=== PATIENT | female | born 1945 | race Caucasian/White ===

== ENCOUNTER → 2018-09-21 12:18 | Outpatient (CLI) | payer MEDICARE, OTHER, SELFPAY ==
--- NOTE | 2018-09-21 12:22 | DI.MG.S_ITS ---
BILATERAL DIGITAL SCREENING MAMMOGRAM 3D/2D WITH CAD: 09/21/2018 CLINICAL: Routine screening. Comparison is made to exams dated: 06/14/2016 mammogram, 11/19/2011 mammogram, 10/28/2010 mammogram, 10/21/2009 mammogram, and 06/28/2006 mammogram - [facility]. There are scattered fibroglandular elements in both breasts. Current study was also evaluated with a Computer Aided Detection (CAD) system. No significant masses, calcifications, or other findings are seen in either breast. There has been no significant interval change. IMPRESSION: NEGATIVE There is no mammographic evidence of malignancy. A 1 year screening mammogram is recommended. This exam was interpreted at Station ID: [id number]. NOTE: For mammograms, a report in lay terms will be sent to the patient. Approximately 15% of breast malignancies will not be visualized mammographically. In the management of a palpable breast mass, a negative mammogram must not discourage biopsy of a clinically suspicious lesion. Electronically Signed By: Balaji manriquez/elma:09/21/2018 18:36:39 letter sent: Normal Exam ACR BI-RADS Category 1: Negative [id number]
== END ==
PROVIDERS: PCP Family Medicine; Visit Provider Family Medicine
DX: Z12.31 Encounter for screening mammogram for malignant neoplasm of breast (principal); M85.852 Other specified disorders of bone density and structure, left thigh; Z78.0 Asymptomatic menopausal state; Z87.891 Personal history of nicotine dependence
CPT/HCPCS: 77063; 77067; 77080

== ENCOUNTER → 2018-09-27 10:21 | Outpatient (CLI) | payer MEDICARE, OTHER, SELFPAY ==
[2018-09-27 12:05] LABS: Add Manual Diff / Slide Review NO; Basophils Absolute Auto 100 /uL (0-100); Eosinophils Absolute Auto 100 /uL (0-450); Eosinophils Percent Auto 1.5 % (2-4); Hematocrit 43.4 % (36-46); Hemoglobin 14.3 g/dL (12.0-16.0); Lymphocytes Absolute Auto 2200 /uL (1100-4500); Lymphocytes Percent Auto 24.5 % (25-40); Mean Corpuscular Hemoglobin 29.7 PG (26-34); Mean Corpuscular Volume 89.9 fL (80-100); Monocytes Absolute Auto 400 /uL (0-900); Monocytes Percent Auto 4.6 % (3-14); Neutrophils Absolute Auto 6200 /uL (1500-7000); Neutrophils Percent Auto 68.4 % (50-75); Platelet Count 307 X10^3/uL (150-400); Red Blood Cell Count 4.83 X10^6/uL (4.0-5.2); Red Cell Distribution Width 12.8 % (11.6-14.8)
[2018-09-27 12:35] LABS: Alanine Aminotransferase 35 IU/L (9-52); Albumin 4.5 g/dL (3.5-5.0); Albumin Globulin Ratio 1.6 (1.0-2.8); Alkaline Phosphatase 71 U/L (38-126); Aspartate Aminotransferase 32 IU/L (14-36); BUN Creatinine Ratio 11.4 (6-22); Bilirubin Total 0.4 mg/dL (0.2-1.3); Blood Urea Nitrogen 8 mg/dL (7-17); Calcium 9.2 mg/dL (8.4-10.2); Carbon Dioxide 27 mmol/L (22-32); Chloride 101 mmol/L (98-107); Cholesterol 173 mg/dL (140-199); Estimated Glomerular Filt Rate > 60.0 mL/min (>60); Globulin 2.9 g/dL (1.7-4.1); Glucose 87 mg/dL (80-110); HDL Cholesterol 52 mg/dL (40-60); HEMOLYSIS < 15 (0-50); LDL Cholesterol Calculated 98 mg/dL (<100); Potassium 3.9 mmol/L (3.4-5.1); Sodium 139 mmol/L (137-145); Total Protein 7.4 g/dL (6.3-8.2); Triglycerides 114 mg/dL (35-150)
[2018-09-27 13:05] LABS: Thyroid Stimulating Hormone 1.27 uIU/mL (0.47-4.68)
== END ==
PROVIDERS: PCP Family Medicine; Visit Provider Family Medicine
DX: Z13.220 Encounter for screening for lipoid disorders (principal); Z13.29 Encounter for screening for other suspected endocrine disorder; Z13.6 Encounter for screening for cardiovascular disorders; M85.80 Other specified disorders of bone density and structure, unspecified site
CPT/HCPCS: 36415; 80053; 80061; 82306; 84443; 85025

== ENCOUNTER 2020-05-20 21:13 | Emergency (ER) | payer MEDICARE, OTHER, SELFPAY ==
[2020-05-20 21:20] VITALS: BP 178/87; PULSE 102; RESP 20; TEMP 36.4; O2SAT 99
--- NOTE | 2020-05-20 21:27 | DI.CT.S_ITS ---
PROCEDURE: CT HEAD/BRAIN WO CON INDICATIONS: fall headache TECHNIQUE: Noncontrast 4.5 mm thick angled axial sections acquired from the foramen magnum to the vertex, with coronal and sagittal reformats. For radiation dose reduction, the following was used: automated exposure control, adjustment of mA and/or kV according to patient size. COMPARISON: None. FINDINGS: Image quality: Excellent. CSF spaces: Basal cisterns are patent. No extra-axial fluid collections. There is mild cerebral volume loss with prominence of the ventricles and sulci. Brain: No intracranial hemorrhage, mass, or mass effect. Escalante-white matter interface appears preserved. Skull and face: Calvarium and visualized facial bones appear intact, without suspicious lesions. Sinuses: Visualized sinuses and mastoids are clear. IMPRESSION: 1. No acute intracranial abnormality. 2. Mild cerebral volume loss. Dictated by: Moisés Eldridge M.D. on 05/20/2020 at 21:49 Approved by: Moisés Eldridge M.D. on 05/20/2020 at 21:50
--- NOTE | 2020-05-20 21:32 | ED.HEATRA ---
HPI - Head Injury General Chief complaint: Head Injury Stated complaint: Fell and hit head today Time Seen by Provider: 05/20/20 21:17 Source: patient Mode of arrival: Ambulatory Limitations: no limitations History of Present Illness HPI Narrative: Patient is a 75-year-old who presents after closed head injury. She states she went to lean against the door frame in the bathroom but it was not there she fell and hit her head and landing on the toilet. He may have had a loss of consciousness. She is not on any anti-platelet or anticoagulation medication. She has no weakness numbness or tingling no nausea or vomiting. She says she just feels fuzzy in the head and slightly off balance. MD Complaint: head injury Onset (ago): hour(s) Mechanism of Injury: fall Place: home Loss of Consciousness: unsure Related Data Home Medications Medication Instructions Recorded Confirmed CA PANTOTHENATE/FOLIC ACID/VIT 1 tab PO Q DAY #0 10/21/11 (MULTIVITAMIN) Fish Oil (#EPA/GLA) 1 sgl PO Q DAY #0 11/11/11 Review of Systems Review of Systems Narrative: GENERAL: Denies chills, fatigue, malaise, fever, sweats, travel HEENT: Denies sinus pain, ear pain, sore throat, difficulty swallowing, neck pain RESPIRATORY: Denies dyspnea, cough, wheezing, hemoptysis, sputum. CARDIOVASCULAR: Denies chest pain, palpitations, orthopnea, edema GASTROINTESTINAL: Denies nausea, vomiting, abdominal pain, diarrhea, constipation, melena. : Denies dysuria, frequency, incontinence, hematuria, urinary retention, flank pain. MUSCULOSKELETAL: Denies weakness, joint pain, or bony pain SKIN: No rash, no erythema, no pruritus NEUROLOGIC: See HPI PSYCHIATRIC: No concerning psychosocial issues. 12 point review of systems is negative except for those stated above and HPI Patient History Medical History (Updated 05/20/20 @ 21:58 by Yanely Olmedo DO) Chicken pox Colon polyp GERD (gastroesophageal reflux disease) Herpes Measles Osteopenia Ovarian cyst Rubella Skin cancer Surgical History History of tonsillectomy S/P cataract surgery (~2014) Status post Mohs surgery Family History Grandfather Hypertension Stroke Mother Cancer Social History marital status: Smoking Status: Former smoker alcohol intake: current substance use type: does not use Smoking Status: Former smoker alcohol intake frequency: a few times a month Substance Use Type: does not use Exam Initial Vital Signs Initial Vital Signs: Vital Signs Temperature 97.6 F 05/20/20 21:20 Pulse Rate 102 H 05/20/20 21:20 Respiratory Rate 20 05/20/20 21:20 Blood Pressure 178/87 H 05/20/20 21:20 Pulse Oximetry 99 05/20/20 21:20 GENERAL: Well-appearing, well-nourished and in no acute distress. HEENT: Head atraumatic pain posterior scalp mom minimal swelling noted no laceration no depressions or crepitations,EOMI, pupils reactive, face symmetric, moist mucous membranes CARDIOVASCULAR: Regular rate and rhythm without murmurs, rubs or gallops. RESPIRATORY: Breath sounds equal bilaterally, no wheezes rales or rhonchi. ABDOMEN: Soft, nontender. Normoactive bowel sounds all 4 quadrants. No guarding or rebound. EXTREMITIES: Normal range of motion, no clubbing or edema. Neurovascularly intact NEUROLOGICAL: Alert and oriented x4.Normal gait and speech. Cranial nerves II through XII grossly intact. Good xhpuee-lu-yxih, good yxac-sx-rjii, strength equal bilaterally, no dysarthria or aphasia, sensation in tact to soft touch bilaterally, no visual changes, no facial droop SKIN: Warm, dry, no laceration, no petechiae, no rashes or lesions. Scores NIH Stroke Scale Level of Conciousness: Alert, keenly responsive Ask month/age: Answers both questions correctly. Open/close eyes, close hand: Performs both tasks correctly Best gaze horizontal: Normal Visual kulkarni: No visual loss Facial palsy: Normal symetrical movement Left arm drift: No drift for full 10 sec Right arm drift: No drift for full 10 sec Left leg drift: No drift for full 5 sec Right leg drift: No drift for full 5 sec Limb ataxia: Absent Sensory on face/arms/legs: Normal, no sensory loss Best language: No aphasia, normal Dysarthria: Normal Extinction or inattention: No abnormality Total NIH Stroke scale score: 0 Course Orders Ordered: ED Orders 05/20/20 21:27 CT head/brain wo con Stat Vital Signs Vital signs: Vital Signs - 8 hr 05/20/20 21:20 05/20/20 22:03 Temperature 97.6 F Pulse Rate 102 H 84 Respiratory Rate 20 16 Blood Pressure 178/87 H 150/70 H Pulse Oximetry 99 97 MDM - Head Injury Imaging Data CT scan - head: Radiologist's Impression: PROCEDURE: CT HEAD/BRAIN WO CON INDICATIONS: fall headache TECHNIQUE: Noncontrast 4.5 mm thick angled axial sections acquired from the foramen magnum to the vertex, with coronal and sagittal reformats. For radiation dose reduction, the following was used: automated exposure control, adjustment of mA and/or kV according to patient size. COMPARISON: None. FINDINGS: Image quality: Excellent. CSF spaces: Basal cisterns are patent. No extra-axial fluid collections. There is mild cerebral volume loss with prominence of the ventricles and sulci. Brain: No intracranial hemorrhage, mass, or mass effect. Escalante-white matter interface appears preserved. Skull and face: Calvarium and visualized facial bones appear intact, without suspicious lesions. Sinuses: Visualized sinuses and mastoids are clear. IMPRESSION: 1. No acute intracranial abnormality. 2. Mild cerebral volume loss. Dictated by: Moisés Eldridge M.D. on 05/20/2020 at 21:49 Discharge Plan Departure Patient Disposition: Home Clinical Impression: Closed head injury Qualifiers: Encounter type: initial encounter Qualified Code(s): S09.90XA - Unspecified injury of head, initial encounter Instructions: Concussion Activity Restrictions/Additional Instructions: *You have been diagnosed with closed head injury *What to do: At this time CT scan is negative. Recommend going home and sleeping taking it easy *Continue to take medications as directed Tylenol 650 mg every 4-6 hours if needed for nffd-xz-ycbwoodh pain Ibuprofen 600 mg every 6-8 hours if needed for jvge-im-srzuhtao pain *Follow up with your primary care provider in 2-3 days *Return to ER if you should have persistent vomiting, increased confusion, weakness or any new, worsening or concerning symptoms Prescriptions: No Action CA PANTOTHENATE/FOLIC ACID/VIT (MULTIVITAMIN) 1 tab PO Q DAY Qty: 0 RF: 0 Fish Oil (#EPA/GLA) 1 sgl PO Q DAY Qty: 0 RF: 0 Referrals: Neva Thorne DO [Primary Care Provider] -
[2020-05-20 22:03] VITALS: BP 150/70; PULSE 84; RESP 16; O2SAT 97
== END 2020-05-20 22:03 | disposition home or self-care (01) ==
PROVIDERS: Emergency Provider Emergency Medicine; PCP Family Medicine
DX: S09.90XA Unspecified injury of head, initial encounter (principal); W18.09XA Striking against other object with subsequent fall, initial encounter
CPT/HCPCS: 70450; 99281; 99284

== ENCOUNTER → 2020-09-05 10:03 | Outpatient (CLI) | payer MEDICARE, SELFPAY ==
[2020-09-05] MEDS: COVID-19 VACC, Ad26(JANSSEN)/PF 0.5 ML IM (10:07)
== END ==
PROVIDERS: PCP Family Medicine; Visit Provider Internal Medicine
DX: Z23 Encounter for immunization (principal)
CPT/HCPCS: 0031A; 91303

== ENCOUNTER → 2021-05-08 10:53 | Outpatient (CLI) | payer MEDICARE, SELFPAY ==
[2021-05-08] MEDS: COVID-19 VACC #3, MRNA(MOD) 50 MCG/0.25 ML VIAL IM (10:57)
== END ==
PROVIDERS: PCP Family Medicine; Visit Provider Internal Medicine
DX: Z23 Encounter for immunization (principal)
CPT/HCPCS: 0013A; 91301

== ENCOUNTER → 2021-07-03 16:37 | Outpatient (CLI) | payer OTHER, SELFPAY ==
--- NOTE | 2021-07-03 16:38 | DI.RAD.S_ITS ---
PROCEDURE: XR FOOT LT MIN 3V INDICATIONS: foot pain TECHNIQUE: 3 views of the foot were acquired. COMPARISON: [facility] [place], CR, FOOT COMP MIN 3VW (LT), 10/11/2014, 11:11. FINDINGS: Bones: No fractures or dislocations. No suspicious bony lesions. Small plantar calcaneal bone spur. Soft tissues: No tibiotalar joint effusion. Achilles tendon appears normal. IMPRESSION: No fracture. No acute osseous lesion. If symptoms and/or clinical suspicion for pathology persists, further assessment with repeat radiographs (7-10 days) or advanced imaging (e.g. CT, MRI or bone scan) should be considered. Dictated by: Nichole Lemons MD, PhD on 07/03/2021 at 17:03 Approved by: Nichole Lemons MD, PhD on 07/03/2021 at 17:04
== END ==
PROVIDERS: PCP Family Medicine; Referring Provider Nurse Practitioner Critical Care Medicine; Visit Provider Nurse Practitioner Critical Care Medicine
DX: M79.672 Pain in left foot (principal); M77.32 Calcaneal spur, left foot
CPT/HCPCS: 73630

== ENCOUNTER → 2021-09-11 10:43 | Outpatient (CLI) | payer OTHER, SELFPAY ==
[2021-09-11 11:24] LABS: Add Manual Diff / Slide Review NO; Basophils Absolute Auto 100 /uL (0-100); Basophils Percent Auto 1.1 % (0-2); Eosinophils Absolute Auto 300 /uL (0-450); Eosinophils Percent Auto 3.6 % (2-4); Hematocrit 40.7 % (36-46); Lymphocytes Absolute Auto 2100 /uL (1100-4500); Mean Corpuscular HGB Conc 34.3 % (30-36); Mean Corpuscular Hemoglobin 30.6 PG (26-34); Mean Corpuscular Volume 89.3 fL (80-100); Monocytes Absolute Auto 400 /uL (0-900); Monocytes Percent Auto 5.6 % (3-14); Neutrophils Absolute Auto 5100 /uL (1500-7000); Neutrophils Percent Auto 63.7 % (50-75); Platelet Count 283 X10^3/uL (150-400); Red Blood Cell Count 4.56 X10^6/uL (4.0-5.2)
[2021-09-11 11:44] LABS: Alanine Aminotransferase 20 IU/L (<35); Albumin 4.3 g/dL (3.5-5.0); Albumin Globulin Ratio 1.3 (1.0-2.8); Alkaline Phosphatase 74 U/L (38-126); Aspartate Aminotransferase 28 IU/L (14-36); BUN Creatinine Ratio 15.5 (6-22); Bilirubin Total 0.5 mg/dL (0.2-1.3); Blood Urea Nitrogen 11 mg/dL (7-17); Calcium 9.2 mg/dL (8.4-10.2); Carbon Dioxide 28 mmol/L (22-32); Chloride 103 mmol/L (98-107); Cholesterol 191 mg/dL (140-199); Estimated Glomerular Filt Rate > 60.0 mL/min (>60); Globulin 3.2 g/dL (1.7-4.1); Glucose 94 mg/dL (80-110); HDL Cholesterol 58 mg/dL (40-60); HEMOLYSIS < 15 (0-50); LDL Cholesterol Calculated 115 mg/dL (<100); Potassium 3.7 mmol/L (3.4-5.1); Sodium 138 mmol/L (137-145); Total Protein 7.5 g/dL (6.3-8.2); Triglycerides 88 mg/dL (35-150)
== END ==
PROVIDERS: PCP Family Medicine; Referring Provider Family Medicine; Visit Provider Family Medicine
DX: K21.9 Gastro-esophageal reflux disease without esophagitis (principal); M85.89 Other specified disorders of bone density and structure, multiple sites; Z13.220 Encounter for screening for lipoid disorders
CPT/HCPCS: 36415; 80053; 80061; 85025

== ENCOUNTER → 2022-08-26 11:44 | Outpatient (CLI) | payer OTHER, SELFPAY | PROVIDERS: PCP Family Medicine; Referring Provider Family Medicine; Visit Provider Family Medicine | DX: Z13.820 Encounter for screening for osteoporosis (principal); Z78.0 Asymptomatic menopausal state; M81.0 Age-related osteoporosis without current pathological fracture | CPT/HCPCS: 77080 ==

== ENCOUNTER → 2022-10-09 09:26 | Outpatient (CLI) | payer OTHER, SELFPAY ==
[2022-10-09 10:41] LABS: Add Manual Diff / Slide Review NO; Basophils Absolute Auto 100 /uL (0-100); Eosinophils Absolute Auto 200 /uL (0-450); Eosinophils Percent Auto 2.7 % (2-4); Hematocrit 40.4 % (36-46); Hemoglobin 13.7 g/dL (12.0-16.0); Lymphocytes Absolute Auto 2700 /uL (1100-4500); Lymphocytes Percent Auto 30.8 % (25-40); Mean Corpuscular Hemoglobin 30.2 PG (26-34); Mean Corpuscular Volume 88.8 fL (80-100); Monocytes Absolute Auto 400 /uL (0-900); Monocytes Percent Auto 5.1 % (3-14); Neutrophils Absolute Auto 5200 /uL (1500-7000); Neutrophils Percent Auto 60.4 % (50-75); Platelet Count 329 X10^3/uL (150-400); Red Blood Cell Count 4.55 X10^6/uL (4.0-5.2); Red Cell Distribution Width 13.1 % (11.6-14.8); White Blood Cell Count 8.6 X10^3/uL (4.5-11.0)
[2022-10-09 10:46] LABS: Alanine Aminotransferase 24 IU/L (<35); Albumin 4.1 g/dL (3.5-5.0); Albumin Globulin Ratio 1.4 (1.0-2.8); Alkaline Phosphatase 79 U/L (38-126); Aspartate Aminotransferase 26 IU/L (14-36); BUN Creatinine Ratio 18.5 (6-22); Bilirubin Total 0.6 mg/dL (0.2-1.3); Blood Urea Nitrogen 12 mg/dL (7-17); Calcium 9.2 mg/dL (8.4-10.2); Carbon Dioxide 27 mmol/L (22-32); Chloride 100 mmol/L (98-107); Cholesterol 200 mg/dL (140-199); Estimated Glomerular Filt Rate > 60 mL/min (>60); Globulin 2.9 g/dL (1.7-4.1); Glucose 92 mg/dL (80-110); HDL Cholesterol 75 mg/dL (40-60); HEMOLYSIS < 15 (0-50); LDL Cholesterol Calculated 102 mg/dL (<100); Sodium 135 mmol/L (137-145); Triglycerides 117 mg/dL (35-150)
[2022-10-09 11:01] LABS: Vitamin D 25 Hydroxy (D3) 75.8 ng/mL (30.0-100.0)
[2022-10-09 11:12] LABS: TSH w/ Reflex to FT4 1.23 uIU/mL (0.47-4.68)
[2022-10-09 11:49] LABS: Neutrophils Absolute Manual 0 /uL (3000-5900); Total Cells Counted 100
[2022-10-09 11:51] LABS: RBC Morphology Normal Morphology
== END ==
PROVIDERS: PCP Family Medicine; Referring Provider Family Medicine; Visit Provider Family Medicine
DX: M81.0 Age-related osteoporosis without current pathological fracture; K21.9 Gastro-esophageal reflux disease without esophagitis; Z13.220 Encounter for screening for lipoid disorders
CPT/HCPCS: 36415; 80053; 80061; 82306; 84443; 85007; 85025

== ENCOUNTER 2023-08-09 18:59 | Emergency (ER) | payer OTHER, SELFPAY ==
[2023-08-09 19:08] VITALS: BP 181/87; PULSE 86; RESP 20; TEMP 36.4; O2SAT 98; BMI 24.9
--- NOTE | 2023-08-09 19:15 | DI.RAD.S_ITS ---
PROCEDURE: XR WRIST LT MIN 3V INDICATIONS: GLF TECHNIQUE: For views of the wrist were acquired. COMPARISON: CR, XR WRIST 3+ VIEWS LEFT, 04/06/2017, 11:49. CR, XR WRIST 3VW LT, 03/22/2017, 15:23. CR, XR WRIST 3VW LT, 03/03/2017, 13:17. CR, XR WRIST 3VW LT, 02/18/2017, 16:24. FINDINGS: Bones: No fractures or dislocations. There is old healed distal radial fracture with deformity. Moderate degenerative joint disease. No suspicious bony lesions. Soft tissues: No suspicious soft tissue calcifications. IMPRESSION: 1. No acute osseous abnormalities. If clinical symptoms persist or clinical suspicion for pathology is high, a repeat examination in 7-10 days, or advanced imaging such as CT or MRI is suggested for further evaluation. 2. There is old healed radial metaphyseal fracture with deformity. Dictated by: Myke Jaimes M.D. on 08/09/2023 at 20:23 Approved by: Myke Jaimes M.D. on 08/09/2023 at 20:25
--- NOTE | 2023-08-09 19:20 | DI.CT.S_ITS ---
PROCEDURE: CT CERVICAL SPINE WO CON INDICATIONS: GLF TECHNIQUE: Noncontrast 3 mm thick sections acquired from the skull base to the T4 level. Sagittal and coronal reformats were then constructed. For radiation dose reduction, the following was used: automated exposure control, adjustment of mA and/or kV according to patient size. COMPARISON: None. FINDINGS: Image quality: Excellent. Bones: No fractures or dislocations. Moderate degenerative disc and facet disease. Trace anterolisthesis of C2 on C3 and C3 on C4. There is a sclerotic focus in the inferior aspect of C2, probably a bone island. Visualized superior ribs are intact. Soft tissues: Prevertebral soft tissues are normal in thickness. No paravertebral hematomas. No apical pneumothoraces. IMPRESSION: No displaced fracture or traumatic subluxation. Dictated by: Myke Jaimes M.D. on 08/09/2023 at 20:04 Approved by: Myke Jaimes M.D. on 08/09/2023 at 20:05
--- NOTE | 2023-08-09 19:20 | DI.CT.S_ITS ---
PROCEDURE: CT HEAD/BRAIN WO CON INDICATIONS: GLF TECHNIQUE: Noncontrast 4.5 mm thick angled axial sections acquired from the foramen magnum to the vertex, with coronal and sagittal reformats. For radiation dose reduction, the following was used: automated exposure control, adjustment of mA and/or kV according to patient size. COMPARISON: [facility], CT, CT HEAD/BRAIN WO CON, 05/20/2020, 21:30. FINDINGS: Image quality: Diagnostic. CSF spaces: Basal cisterns are patent. No extra-axial fluid collections. The ventricles are symmetric in size and shape. Brain: No intracranial bleeds or masses. There is cerebral volume loss for age, with resultant ventricular and sulcal prominence. There are periventricular and deep white matter chronic small vessel ischemic changes. There is intracranial internal carotid artery atherosclerosis. Skull and face: Calvarium and visualized facial bones appear intact, without suspicious lesions. Sinuses: Visualized sinuses and mastoids are clear. IMPRESSION: 1. No acute intracranial abnormalities. 2. Cerebral volume loss and chronic microvascular ischemic changes. Dictated by: Myke Jaimes M.D. on 08/09/2023 at 20:03 Approved by: Myke Jaimes M.D. on 08/09/2023 at 20:04
[2023-08-09 21:40] VITALS: PULSE 68; O2SAT 97
[2023-08-09 21:41] VITALS: BP 169/74; PULSE 68; RESP 20; O2SAT 96
--- NOTE | 2023-08-09 21:42 | ED.FALL ---
HPI - Fall General Chief Complaint: Fall Stated Complaint: FALL HIT HEAD NO THINNERS SENT BY [place] Time Seen by Provider: 08/09/23 21:17 Source: patient Mode of arrival: Ambulatory History of Present Illness HPI Narrative: 78-year-old female presents for evaluation after a ground level fall. Patient was at the gas station cleaning her windows off when she stepped to the side and lost her balance, falling. She landed on her bottom, her left wrist, and then hit her head. She did not lose consciousness, is not on any blood thinners. Patient's primary pain location is in her left wrist. Denies numbness or weakness. Related Data Home Medications Medication Instructions Recorded Confirmed CA PANTOTHENATE/FOLIC ACID/VIT 1 tab PO Q DAY ##0 10/21/11 09/28/22 (MULTIVITAMIN) Fish Oil (#EPA/GLA) 1 sgl PO Q DAY ##0 11/11/11 09/28/22 Alpha lipoic acid PO 08/17/21 09/28/22 Bone up PO 08/17/21 09/28/22 CoQ10 PO 08/17/21 09/28/22 Vitamin B12 PO 08/17/21 09/28/22 Vitamin C PO 08/17/21 09/28/22 Vitamin D3 PO 08/17/21 09/28/22 cellwise PO 08/17/21 09/28/22 collagen PO 08/17/21 09/28/22 gentian tincture PO 08/17/21 09/28/22 horsetail PO 08/17/21 09/28/22 hyaluronic acid PO 08/17/21 09/28/22 multivitamin PO 08/17/21 09/28/22 nutraview PO 08/17/21 09/28/22 pureform PO 08/17/21 09/28/22 vitamin K2 PO 08/17/21 09/28/22 Previous Rx's Medication Instructions Recorded estradiol 0.01% (0.1 mg/gram) 1 appful vaginal DAILY #42.5 grams 08/17/21 vaginal cream (Estrace) alendronate 10 mg tablet 10 mg PO DAILY #90 tabs 09/28/22 Allergies Allergy/AdvReac Type Severity Reaction Status Date / Time No Known Drug Allergies Allergy Verified 08/09/23 19:14 Review of Systems Review of Systems Narrative: Negative except as noted above Patient History Medical History Osteoporosis Plantar callus Excessive cerumen in both ear canals Vaginal dryness, menopausal Screening for hyperlipidemia Screening for breast cancer Osteopenia Rubella Measles Chicken pox Herpes Ovarian cyst GERD (gastroesophageal reflux disease) Skin cancer Colon polyp Surgical History Status post Mohs surgery S/P cataract surgery (~2014) History of tonsillectomy Family History Grandfather Hypertension Stroke Mother Cancer Father Aneurysm Coronary artery disease Cancer Social History marital status: Smoking Status: Former smoker alcohol intake: current substance use type: does not use Smoking Status: Former smoker alcohol intake frequency: a few times a month Substance Use Type: does not use Exam Initial Vital Signs Initial Vital Signs: Vital Signs Temperature 97.5 F L 08/09/23 19:08 Pulse Rate 86 08/09/23 19:08 Respiratory Rate 20 08/09/23 19:08 Blood Pressure 181/87 H 08/09/23 19:08 Pulse Oximetry 98 08/09/23 19:08 Oxygen Delivery Method Room Air 08/09/23 19:08 Const: Awake, alert, no acute distress, nontoxic appearing Cardiac: regular rate, regular rhythm RESP: unlabored, clear bilaterally, no wheezing GI: Atraumatic, soft, nontender, nondistended, no rebound, no guarding MSK: Left wrist with minimal swelling medial aspect, full range of motion, able to make a okay, thumbs up, touch each finger to her thumb Skin: Warm, Dry, intact, no rashes Neuro: AO x3, CN II-XII grossly intact, moves all extremities, gait normal Psych: affect normal, mood normal, not suicidal, not homicidal Course Orders Ordered: ED Orders 08/09/23 19:15 XR wrist LT min 3V Stat 08/09/23 19:20 CT cervical spine wo con Stat CT head/brain wo con Stat Vital Signs Vital signs: Vital Signs - 8 hr 08/09/23 19:08 08/09/23 21:40 08/09/23 21:41 Temperature 97.5 F L Pulse Rate 86 68 Respiratory Rate 20 Blood Pressure 181/87 H 169/74 H Pulse Oximetry 98 97 Oxygen Delivery Method Room Air 08/09/23 21:41 Temperature Pulse Rate 68 Respiratory Rate 20 Blood Pressure Pulse Oximetry 96 Oxygen Delivery Method Room Air MDM - Fall Differential Diagnosis Differential diagnosis: Likely dislocation of shoulder region, fracture of wrist and compression fracture MDM Narrative Medical decision making narrative: Well-appearing patient presenting for evaluation after a ground level trip and fall. She does have some swelling of her left wrist, however is neurovascularly intact and patient says she already has a slight deformity there from a previous fracture that did not require surgery. CT imaging of the brain and C-spine were negative for acute traumatic pathology. X-ray of the wrist negative for acute fracture. Patient declined wrist splint stating that she has several left over at her home from her previous wrist fracture and does not need another 1 here in the emergency department. Rice instructions counseled at bedside. ED return precautions discussed at bedside. Patient expressed understanding of the plan and is in agreement at this time. All questions answered at the time of discharge. Discharge Plan Departure Patient Disposition: Home Clinical Impression: Left wrist pain, Ground-level fall Instructions: How To Perform RICE (Rest, Ice, Compress, Elevate) Prescriptions: No Action CA PANTOTHENATE/FOLIC ACID/VIT (MULTIVITAMIN) 1 tab PO Q DAY Qty: 0 Fish Oil (#EPA/GLA) 1 sgl PO Q DAY Qty: 0 estradiol [Estrace] 0.01 % (0.1 mg/gram) cream 1 appful vaginal DAILY Qty: 42.5 5RF Rx Instructions: for 14 days, then twice weekly multivitamin PO Vitamin C PO Vitamin D3 PO vitamin K2 PO Vitamin B12 PO Bone up PO Patient Comments: Calcium magnesium CoQ10 PO Alpha lipoic acid PO horsetail PO nutraview PO Patient Comments: lutein, zeaxeanthin+ cellwise PO Patient Comments: grapeseed extract, + pureform PO Patient Comments: evening primrose oil hyaluronic acid PO collagen PO gentian tincture PO alendronate 10 mg tablet 10 mg PO DAILY Qty: 90 3RF Referrals: Boo Lema DO [Primary Care Provider] - Stand Alone Forms: Patient Portal/API
== END 2023-08-09 21:50 | disposition home or self-care (01) ==
PROVIDERS: Emergency Provider Emergency Medicine; PCP Family Medicine
DX: M25.532 Pain in left wrist (principal); S09.90XA Unspecified injury of head, initial encounter; W18.30XA Fall on same level, unspecified, initial encounter
CPT/HCPCS: 70450; 72125; 73110; 99284

== ENCOUNTER 2023-08-22 12:58 | Day surgery (SDC) | payer OTHER, SELFPAY ==
[2023-08-22 13:59] VITALS: BP 140/88; PULSE 83; RESP 16; TEMP 36.3; O2SAT 100
--- NOTE | 2023-08-22 14:02 | P.HP_ITS ---
History of Present Illness History of Present Illness Date Patient Seen: 08/22/23 Time Patient Seen: 14:02 Chief complaint: Dx Colonoscopy Narrative: 78-year-old female with a personal history of colon polyps returning for surveillance colonoscopy. [facility] Medical History Osteoporosis Plantar callus Excessive cerumen in both ear canals Vaginal dryness, menopausal Screening for hyperlipidemia Screening for breast cancer Osteopenia Rubella Measles Chicken pox Herpes Ovarian cyst GERD (gastroesophageal reflux disease) Skin cancer Colon polyp Surgical History Status post Mohs surgery S/P cataract surgery (~2014) History of tonsillectomy Family History Grandfather Hypertension Stroke Mother Cancer Father Aneurysm Coronary artery disease Cancer Social History marital status: Smoking Status: Former smoker alcohol intake: current substance use type: does not use Meds Home Medications and Allergies Home Medications Medication Instructions Recorded Confirmed Type CA PANTOTHENATE/FOLIC ACID/VIT 1 tab PO Q DAY ##0 10/21/11 08/22/23 History (MULTIVITAMIN) Fish Oil (#EPA/GLA) 1 sgl PO Q DAY ##0 11/11/11 09/28/22 History Alpha lipoic acid PO 08/17/21 09/28/22 History Bone up PO 08/17/21 09/28/22 History CoQ10 PO 08/17/21 09/28/22 History Vitamin B12 PO 08/17/21 09/28/22 History Vitamin C PO 08/17/21 09/28/22 History Vitamin D3 PO 08/17/21 09/28/22 History cellwise PO 08/17/21 09/28/22 History collagen PO 08/17/21 09/28/22 History estradiol 0.01% (0.1 mg/gram) 1 appful vaginal DAILY #42.5 grams 08/17/21 09/28/22 Rx vaginal cream (Estrace) gentian tincture PO 08/17/21 09/28/22 History horsetail PO 08/17/21 09/28/22 History hyaluronic acid PO 08/17/21 09/28/22 History multivitamin PO 08/17/21 09/28/22 History nutraview PO 08/17/21 09/28/22 History pureform PO 08/17/21 09/28/22 History vitamin K2 PO 08/17/21 09/28/22 History alendronate 10 mg tablet 10 mg PO DAILY #90 tabs 09/28/22 08/22/23 Rx Allergies Allergy/AdvReac Type Severity Reaction Status Date / Time No Known Drug Allergies Allergy Verified 08/22/23 13:55 Review of Systems Review of Systems ROS: Yes All systems reviewed with the patient and are negative except as otherwise documented Exam Const General: cooperative HENMT Head: normal to inspection Eyes General: appearance normal, both eyes and all related structures Neck Neck: normal visual inspection Chest Chest: normal inspection of the chest Resp Effort & Inspection: normal respiratory effort Cardio Rate: regular rate GI Inspection: normal to inspection Skin General: no rashes or lesions noted Neuro General: patient alert and patient awake Extrem General: normal to inspection and no pedal edema Psych Appearance: grossly normal Assessment & Plan Assessment & Plan narrative: 78-year-old female with a personal history of colon polyps. Colonoscopy is pursued today.
--- NOTE | 2023-08-22 14:03 | PM.PREOP ---
Pre-operative Note Interval Note History & Physical reviewed/Exam performed by Physician: Yes Changes to H&P: No ASA Class (for procedural sedation): II
[2023-08-22] MEDS: LACTATED RINGERS 1,000 ML 42 ML IV (14:11)
--- NOTE | 2023-08-22 14:50 | P.OP.COLON_ITS ---
Operative Date/Time/Diagnoses Date of procedure: 08/22/23 Time of procedure: 14:50 Pre-op diagnosis: Personal history of colon polyps Post-op diagnosis: same Procedure & Clinicians Study performed: Colonoscopy with cold snare polypectomy Same procedure as scheduled: Yes Indications: Personal history of colon polyps Surgeon: Nir Morgan Procedure Notes SCOAP/Timeout: Done Procedure in detail: After the risks and benefits were explained, written and verbal informed consent was obtained. The patient was brought into the procedure room and placed into the left lateral decubitus position. Please see anesthesia note for sedation details. Digital rectal examination was accomplished. The scope was introduced into the patient and advanced under direct visualization to the cecum as identified by the appendiceal orifice and ileocecal valve. The scope was slowly withdrawn to carefully examine the mucosa for any defects or lesions. Comprehensive imaging was accomplished throughout the rectum including the dent ate line. The colon was decompressed, the scope was then removed from the patient who tolerated the procedure well. Pediatric colonoscope Bowel prep adequate Scope withdrawal time: 8 minutes Sedation minutes: 17 Complications: none Impression: The patient had fairly extensive diverticulosis all throughout the left and right colon. In the ascending colon there was an approximately 5 mm sessile polyp removed with cold snare. As of the time of this dictation, it was not con fidently retrieved in the trap. There was a 2nd polyp that I initially thought about taking with hot snare but on closer inspection realize this was a 5 mm hyperplastic polyp associated with a diverticular lumen so this was left alone. No additional pathology was appreciated throughout. Endoscopic diagnosis 1. Diverticulosis 2. Colon polyp Post-procedure Plan for aftercare: Consider surveillance colonoscopy in 5-7 years. Disposition: PACU
[2023-08-22 14:54] VITALS: BP 97/46; PULSE 68; RESP 17; TEMP 36.3; O2SAT 97
[2023-08-22 15:00] VITALS: BP 94/57; PULSE 73; RESP 16; O2SAT 97
[2023-08-22 15:05] VITALS: BP 99/57; PULSE 74; RESP 25; O2SAT 97
[2023-08-22 15:08] VITALS: BP 107/57; PULSE 70; RESP 17; TEMP 36.3; O2SAT 96
[2023-08-22 15:24] VITALS: BP 112/60; PULSE 75; RESP 16; TEMP 36.2; O2SAT 98
== END 2023-08-22 15:32 | disposition home or self-care (01) ==
PROVIDERS: PCP Family Medicine; Referring Provider Internal Medicine Gastroenterology; Visit Provider Internal Medicine Gastroenterology
PROC: 0DJD8ZZ Inspection of Lower Intestinal Tract, Via Natural or Artificial Opening Endoscopic (ICD-10-PCS; CPT 45378; principal; 2023-08-22 14:00)
DX: Z12.11 Encounter for screening for malignant neoplasm of colon (principal); Z86.010 Personal history of colon polyps; K57.30 Diverticulosis of large intestine without perforation or abscess without bleeding; K63.5 Polyp of colon
CPT/HCPCS: 45385; J2704

== ENCOUNTER → 2024-01-18 15:09 | Outpatient (CLI) | payer OTHER, SELFPAY ==
--- NOTE | 2024-01-18 15:09 | DI.MG.S_ITS ---
BILATERAL DIGITAL SCREENING MAMMOGRAM 3D/2D WITH CAD: 01/18/2024 CLINICAL: Routine screening. Comparison is made to exams dated: 09/21/2018 mammogram, 06/14/2016 mammogram, and 11/19/2011 mammogram - [facility]. There are scattered areas of fibroglandular density in both breasts (category b / 25%-50% glandular tissue). Current study was also evaluated with a Computer Aided Detection (CAD) system. No significant masses, calcifications, or other findings are seen in either breast. There has been no significant interval change. IMPRESSION: NEGATIVE There is no mammographic evidence of malignancy. A 1 year screening mammogram is recommended. Based on the Tyrer Cuzick model (a risk assessment model) the patient's lifetime risk is 3.7% and her 10 year risk is 0.0%. According to the ACR, ACS, and NCCN guidelines, an annual breast MRI exam along with mammogram is recommended if the patient's lifetime risk is 20% or greater. This exam was interpreted at Station ID: [id number]. NOTE: For mammograms, a report in lay terms will be sent to the patient. Approximately 15% of breast malignancies will not be visualized mammographically. In the management of a palpable breast mass, a negative mammogram must not discourage biopsy of a clinically suspicious lesion. Electronically Signed By: Yuliya Vera M.D., Ph.D. [email or web address]/[email or web address]:01/19/2024 09:13:53 letter sent: Normal Exam ACR BI-RADS Category 1: Negative [id number]
== END ==
PROVIDERS: PCP Family Medicine; Referring Provider Family Medicine; Visit Provider Family Medicine
DX: Z12.31 Encounter for screening mammogram for malignant neoplasm of breast (principal); R92.323 Mammographic fibroglandular density, bilateral breasts
CPT/HCPCS: 77063; 77067

== ENCOUNTER → 2024-09-18 10:27 | Outpatient (CLI) | payer MEDICARE, SELFPAY ==
--- NOTE | 2024-09-18 10:30 | DI.RAD.S_ITS ---
PROCEDURE: XR DEXA AXIAL SKELETON INDICATIONS: osteoporosis monitoring COMPARISON: [facility], CR, XR DEXA AXIAL SKELETON, 08/26/2022, 12:17. FINDINGS: Lumbar Spine: Bone mineral density 1.002 (previously 0.920) g/cm2, T score -0.4 (previously -1.2). Left Femoral Neck: Bone mineral density 0.555 (previously 0.550) g/cm2, T score -2.6 (previously -2.7). Left Hip: Bone mineral density 0.678 (previously 0.669) g/cm2, T score -2.2 (previously -2.2). Fracture Risk Calculation (when applicable): 10-year fracture risk of a major osteoporotic fracture 19 percent and of a hip fracture 6.3 percent. (T score greater or equal to -1.0 to: NORMAL) (T score from -1.1 to -2.4: OSTEOPENIA) (T score less than or equal to -2.5: OSTEOPOROSIS) IMPRESSION: Osteoporosis---recommend repeat DEXA in 2 years or less for reassessment of response to treatment. Follow-up guidelines as follows: Osteoporosis: Consider a repeat DEXA and Vertebral Fracture Assessment (VFA) exam in 2 years or sooner if medically necessary, to reassess this patient's status. Osteopenia: Consider a repeat DEXA in 2-3 years to reassess this patient's status, or if there is a new clinical indication. Normal: Consider a repeat DEXA in 5 years or sooner, or if there is a new clinical indication. All treatment decisions require clinical judgment and consideration of individual patient factors, including patient preferences, comorbidities, previous drug use, risk factors not captured in the FRAX model (e.g., frailty, falls, vitamin D deficiency, increased bone turnover, interval significant decline in bone density ) and possible under- or over-estimation of fracture risk by FRAX. In addition, the NOF Guide recommends that FDA-approved medical therapies be considered in postmenopausal women and men age >= 50 years with a: * Hip or vertebral (clinical or morphometric) fracture * T-score of <=-2.5 at the spine or hip * Ten-year fracture probability by FRAX of >= 3% for hip fracture or >=20% for major osteoporotic fracture. Dictated by: Stewart Newton M.D. on 09/18/2024 at 16:26 Approved by: Stewart Newton M.D. on 09/18/2024 at 16:35
== END ==
PROVIDERS: PCP Family Medicine; Referring Provider Family Medicine; Visit Provider Family Medicine
DX: M81.0 Age-related osteoporosis without current pathological fracture (principal)
CPT/HCPCS: 77080

== ENCOUNTER → 2024-10-17 10:55 | Outpatient (CLI) | payer MEDICARE, SELFPAY ==
--- NOTE | 2024-10-17 10:57 | DI.CT.S_ITS ---
PROCEDURE: CT LUNG LOW DOSE SCREENING INDICATIONS: 20 pack year smoking hx TECHNIQUE: Noncontrast 2.0-2.5 mm thick sections acquired from the pulmonary apices to the posterior costophrenic angles. 7 mm thick axial MIP, and 5 mm coronal and sagittal reformats were then acquired. For radiation dose reduction, the following was used: automated exposure control, adjustment of mA and/or kV according to patient size. COMPARISON: None. FINDINGS: Image quality: Diagnostic. Lower Neck: No enlarged lymph nodes. Thyroid: No thyroid nodules which require sonographic follow up, per consensus guidelines. Axillae: No enlarged lymph nodes. Chest Wall: Unremarkable. Bones: Multilevel degenerative changes of the spine. Lungs and Pleura: No pneumothorax or pleural effusions. Several calcified granulomata. No suspicious noncalcified nodules. Heart: Heart size is normal. Trace pericardial effusion. Thoracic Vessels: The aorta and pulmonary arteries demonstrate normal size. Atherosclerotic vascular calcifications. Mediastinum and Tabitha: No enlarged lymph nodes. Calcified mediastinal lymph nodes are noted. Esophagus: No wall thickening. No hiatal hernia. Upper Abdomen: Visualized upper abdomen solid organs and bowel loops appear normal. IMPRESSION: Sequela of prior granulomatous disease with calcified pulmonary nodules and mediastinal lymph nodes. No suspicious noncalcified pulmonary nodules. LUNG-RADS 1; continued annual screening, if eligible. Clinically Significant Non-pulmonary Findings: None. Dictated by: Jonathan Fischer M.D. on 10/18/2024 at 10:41 Approved by: Jonathan Fischer M.D. on 10/18/2024 at 10:45
== END ==
PROVIDERS: PCP Family Medicine; Referring Provider Family Medicine; Visit Provider Family Medicine
DX: Z87.891 Personal history of nicotine dependence (principal); Z12.2 Encounter for screening for malignant neoplasm of respiratory organs; J98.4 Other disorders of lung
CPT/HCPCS: 71271